=== PATIENT | male | born 1975 | race Caucasian/White ===

== ENCOUNTER 2024-03-15 18:26 | Emergency (ER) | payer BC, SELFPAY ==
[2024-03-15 18:49] VITALS: BP 221/131; PULSE 89; RESP 18; TEMP 36.8; O2SAT 97; BMI 27.9
--- NOTE | 2024-03-15 19:06 | ED.GENADULT ---
HPI - General Adult General Date Seen: 03/15/24 Chief complaint: Skin/Abscess/Foreign Body Stated complaint: Rash across body Time Seen by Provider: 03/15/24 19:05 History of Present Illness HPI narrative: 48-year-old male with a history of hypertension (previously on lisinopril and hydrochlorothiazide according to his records from [facility]. Patient says that his blood pressure came down his doctors took him off his meds. He has not had a checkup since 2017 but as far as he knows he does not have any more trouble with high blood pressure.), history of lipoma on his right back (excised 2016). A he presents to the ER today with a rash. It started about a week ago on his right> forearms and antecubital fossae. It initially started as red bumps and blisters than scabs and scales and then gradually has been healing. Since then he has developed red raised rash areas on other parts of his body including scattered lesions across his chest and abdomen in particular below his nipples and upper abdomen and also in his lower abdomen. He has a few small spots on his lower back but no spots on his mid back between the shoulder blades, but has significant more involvement but much more on the front of his torso. He had 1 small rash on his left jewish that is now improving and now has a small red area on his right upper eyelid. No trouble with his vision. He has also noted redness in his left groin, his buttocks, and a little bit on his left anterior thigh. The rash is mildly itchy and most notably gets itchy when he touches it. No other symptoms. No rash in his mouth. No throat swelling. No trouble breathing. No nausea or vomiting. No fever. No trouble with urination. Bowel movements normal. Patient has no new foods, soaps, or any exposure to allergens. He is not currently on any medications. He has not really been hiking around in the [place] lately but his father notes that there is some tall grass next to his shop that he could have been exposed to. No one else in his home has any rashes to suggest this might be bedbugs or scabies. No other known exposure. He is not exposed to any chemicals. He is noted to have high blood pressure at about 230/130. He says he was unaware of this. No headache. No blurry vision. No chest pain. No trouble breathing. No swelling in his legs. He has a history of hypertension, years ago, and had previously been on lisinopril/hydrochlorothiazide but he says his doctors took him off it years ago because blood pressure was under control. He has not had a checkup now in about 6 or 7 years. His father has a history of hypertension and history of coronary artery disease. Related Data Previous Rx's ?Medication ?Instructions ?Recorded lisinopril 20 mg tablet 20 mg PO DAILY #14 tabs 03/15/24 prednisone 10 mg tablets in a dose See Rx Instructions PO .COMPLEX 03/15/24 pack #64 ea Allergies Allergy/AdvReac Type Severity Reaction Status Date / Time No Known Drug Allergies Allergy Verified 03/15/24 18:55 PFSH PFS Social History Smoking Status: Unknown if ever smoked Second hand tobacco smoke exposure: No How often do you have a drink containing alcohol: never AUDIT-C Alcohol total score: 0 Non-prescribed substance use: denies use Exam Narrative: Exam Narrative: Constitutional: Appears well-developed and well-nourished. Alert. Conversant. Non toxic. HENT: Head: Atraumatic. Nose: Nose normal. Mouth/Throat: Oral mucosa is clear and moist. no trismus. Pharynx normal. Tonsils symmetric. No tonsillar enlargement, erythema, or exudate. Eyes: He has 1 small erythematous lesion on the midportion of his right upper eyelid. Bulbar and lid Conjunctivae normal. EOM normal. Pupils equal, round, and reactive to light. No scleral icterus. No purulent drainage. Neck: Normal range of motion. Neck supple. No tracheal deviation present. No JVD Cardiovascular: Normal rate, regular rhythm. No gallop. No friction rub. No murmur heard. Symmetric radial artery pulses Pulmonary/Chest: Effort normal. No stridor. No respiratory distress. No wheezes. No rales. No rhonchi . No tenderness. Abdominal: Soft. Bowel sounds normal. No distension. No mass. No tenderness. No rebound. No guarding. Musculoskeletal: RUE: Normal range of motion. No tenderness. No deformity LUE: Normal range of motion. No tenderness. No deformity RLE: Normal range of motion. No edema. No tenderness. No deformity LLE: Normal range of motion. No edema. No tenderness. No deformity Lymph: No cervical adenopathy. Neurological: Alert and oriented to person, place, and time. Normal strength. CN II-VII intact. No sensory deficit. GCS eye subscore is 4. GCS verbal subscore is 5. GCS motor subscore is 6. Normal coordination Skin: Skin is pink, dry, no pallor diaphoresis. No pallor. Normal capillary refill. There is a fairly widespread rash. It involves both of his upper extremities especially on the volar forearms and antecubital fossae. He also has a few scattered areas on the front of his upper arms and shoulders. LEs lesions on the dorsum of his arms and non on the back. No lesions between his shoulder blades or on his upper back. He has a few lesions on his lower back and buttocks. He has a fairly large area of erythema affecting his left groin and left anterior medial thigh. He also has a few linear areas on the left distal anterior thigh. There are confluent areas of slightly raised erythematous skin. Some of these have small vesicles and many is have score sting that suggest vesicles have been de roofed. For instance, on his right antecubital fossa there is a roughly 8 x 14 cm irregularly-shaped confluent area. Around this there are some smaller red lesions that almost appear to be streaky has if the patient had been rubbed by something or scratched poison quintin to spread it. He does not have any dermatographiaphism on my exam. In other areas there is very small rashes that appear to be curvilinear shapes as if he had been touched by a branch or perhaps rubs something from his hands onto his skin. These would appear on his right lateral and upper shoulder and on his left anterior thigh and also in some of the areas on his low back. With the scaling and crusting, rashes really are not consistent with urticaria and hives. No pustules. No petechiae or purpura. Normal cap refill. Red rashes are blanchable. Psychiatric: Normal mood. Normal affect. Const: Vital Signs, click to edit/add: Vital Signs - 24 hr 03/15/24 18:49 03/15/24 20:09 Temperature 98.3 F Pulse Rate [Right Pulse Oximeter] 89 Respiratory Rate 18 18 Blood Pressure [Le ft Upper Arm] 221/131 H 236/131 H Pulse Oximetry 97 97 Oxygen Delivery Me thod Room Air Room Air Course Vital Signs Vital signs: Initial Vital Signs Temperature 98.3 F 03/15/24 18:49 Temperature Source Temporal Artery Scan 03/15/24 18:49 Pulse Rate 89 03/15/24 18:49 Pulse Rhythm Regular 03/15/24 18:49 Pulse Strength 3+ Normal 03/15/24 18:49 Respiratory Rate 18 03/15/24 18:49 Blood Pressure 221/131 H 03/15/24 18:49 Blood Pressure Mean 161 H 03/15/24 18:49 Blood Pressure Position Sitting 03/15/24 18:49 Pulse Oximetry 97 03/15/24 18:49 Oxygen Delivery Method Room Air 03/15/24 18:49 Vital Signs Temperature 98.3 F 03/15/24 18:49 Pulse Rate 89 03/15/24 18:49 Respiratory Rate 18 03/15/24 18:49 Blood Pressure 221/131 H 03/15/24 18:49 Pulse Oximetry 97 03/15/24 18:49 Oxygen Delivery Method Room Air 03/15/24 18:49 Temperature 98.3 F 03/15/24 18:49 Pulse Rate 89 03/15/24 18:49 Respiratory Rate 18 03/15/24 20:09 Blood Pressure 236/131 H 03/15/24 20:09 Pulse Oximetry 97 03/15/24 20:09 Oxygen Delivery Method Room Air 03/15/24 20:09 Medications Administered Medications: Discontinued Medications Generic Name Dose Route Start Last Admin Trade Name Freq PRN Reason Stop Dose Admin Lisinopril 20 mg 03/15/24 19:40 03/15/24 20:06 Lisinopril 20 Mg Tablet PO 03/15/24 19:41 20 mg ONCE ONE Administration Prednisone 60 mg 03/15/24 19:39 03/15/24 19:53 Prednisone 20 Mg Tablet PO 03/15/24 19:40 60 mg ONCE ONE Administration Medical Decision Making MDM Narrative Medical decision making narrative: This is a very pleasant 48-year-old gentleman accompanied the ER today by his father and his daughter with concern for AA fairly widespread erythematous rash that has been at times blistery nighttime scabbed and crusty. It has been present for a week it has been slowly spreading. It is itchy when it is touched but otherwise he says he is able to ignore it. Differential is broad. Based on the appearance of the rash especially with some linear areas I suspect this might be a case of poison quintin that is been spread by cutaneous rubbing or possibly poison oak. However the patient has no definite exposure to the outdoors or any recent hiking. He may have been in some tall grass and weeds next to his shop. No new medications or allergen exposures to suggest systemic allergic reaction. Since the rash has been present for a week and there is no signs of any airway involvement or anaphylaxis, doubt a life-threatening allergic reaction here. No known exposure to bedbugs or scabies. Rash seems a bit too widespread for that. Differential might also include autoimmune disease, but given the way that the rash seems to be spreading and linear shaped, would favor something like poison quintin. At this point he is not systemically ill. He does not require admission or transfer hospital for a inpatient dermatology consult. Will start him on prednisone and start on a fairly high dose with a slow taper in case this is poison quintin. Recommend outpatient follow-up with primary care for recheck if not improving or return to the ER if worse. Incidentally he is noted to have markedly high blood pressure. He has a history of this in the past. He is asymptomatic. At this point I do not think this represents a hypertensive emergency. I do not think he had workup here in the ER. However I do think he needs restarted on antihypertensives. Will start him back on lisinopril 20 mg per day. He endorses intention to follow up with primary care within about 1 week for blood pressure recheck and to pursue ongoing blood pressure management. Discussed with the patient and his family the long-term risk of uncontrolled high blood pressure, specifically the risk for kidney damage, atherosclerosis, heart attack, stroke. He endorses attention to restart on the prescribed blood pressure medication and will follow up. Precautions for return to the ER if he does develop headache, blurry vision, focal numbness or weakness, chest pain or trouble breathing, or any other problems. Discharge Plan Discharge Clinical Impression: Rash and nonspecific skin eruption, Hypertension Patient Disposition: Home, Self-Care Condition: Stable Instructions: Acute Rash (ED), Hypertension (ED) Additional Instructions: As we discussed, we do not know the exact cause of your rash at this time. However I suspect it may be something like poison quintin. Were going to treat it with a medication call prednisone that should help the rash calm down. If not completely gone within a week, please recheck with your regular doctor. If you get worse, come back to the ER for recheck. Your blood pressure is high. You need to restart on blood pressure medications and follow-up with your regular doctor within 1 week for another blood pressure recheck. If he develops any chest pain, blurry vision, headache or symptoms of stroke, return to the ER immediately. Please call tomorrow to schedule a primary care checkup. You can the [facility] clinic tomorrow to schedule a recheck for a checkup in blood pressure recheck. If you prefer to follow up with the [facility], you can call [phone] to schedule a follow-up appointment. Prescriptions: New lisinopril 20 mg tablet 20 mg PO DAILY Qty: 14 0RF prednisone 10 mg tablets,dose pack See Rx Instructions .ROUTE .COMPLEX Qty: 64 0RF Rx Instructions: 80mg PO daily for 4 days, then 60mg PO daily for 2 days, then 40mg PO daily for 2 days, then 30 mg PO daily for 2 days, then 20mg PO daily for 2 days, then 10mg PO daily for 2 days, then stop. Stand Alone Forms: [employer] Info Instructions
[2024-03-15] MEDS: predniSONE 20 MG TABLET 60 MG PO (19:53)
[2024-03-15] MEDS: lisinopriL 20 MG TABLET PO (20:06)
[2024-03-15 20:09] VITALS: BP 236/131; RESP 18; O2SAT 97
== END 2024-03-15 20:10 | disposition home or self-care (01) ==
LOC: ED 19:52
PROVIDERS: Emergency Provider Emergency Medicine
DX: R21 Rash and other nonspecific skin eruption (principal); I10 Essential (primary) hypertension
CPT/HCPCS: 99283; A9270; J7512

== ENCOUNTER 2024-03-20 11:01 | Emergency (ER) | payer BC, SELFPAY ==
[2024-03-20 11:05] VITALS: BP 159/96; PULSE 71; RESP 16; TEMP 36.6; O2SAT 95; BMI 28.3
--- NOTE | 2024-03-20 11:50 | ED_ITS ---
HPI - General Adult General Date Seen: 03/20/24 Chief complaint: Diabetic Related Problem Stated complaint: glucose numbers very high Time Seen by Provider: 03/20/24 11:06 Source: patient Mode of arrival: ambulatory Limitations: no limitations History of Present Illness HPI narrative: Patient is a 48-year-old male presenting to emergency department for hyperglycemia. He has no history of diabetes but was recently started on a steroid 5 days ago for a rash on his arms that was concerning for poison quintin. He had follow-up his primary care provider yesterday and had lab work done. Got the results at midnight showing his blood sugar was 559 was told to come to the emergency department by his primary care provider. Patient was feeling well so he waited until this morning. States he has been doing well all morning and even helped his daughter in the garden without any issues. States overall he feels asymptomatic. Is not aware of any previous diabetes diagnosis. Is not currently taking anything for diabetes. States the rash is getting better. No other concerns noted. Denies chest pain, shortness of breath, polyuria, dehydration, headache, vision changes, diarrhea, constipation, abdominal pain. Related Data Previous Rx's ?Medication ?Instructions ?Recorded lisinopril 20 mg tablet 20 mg PO DAILY #14 tabs 03/15/24 prednisone 10 mg tablets in a dose See Rx Instructions PO .COMPLEX 03/15/24 pack #64 ea metformin 500 mg tablet,extended 500 mg PO DAILY #14 tabs 03/20/24 release 24hr (osmotic) Allergies Allergy/AdvReac Type Severity Reaction Status Date / Time No Known Drug Allergies Allergy Verified 03/15/24 18:55 Review of Systems Status of ROS: Reports: 10 or more systems reviewed and unremarkable except as noted in History and below [facility] Social History Smoking Status: Unknown if ever smoked Second hand tobacco smoke exposure: No How often do you have a drink containing alcohol: never AUDIT-C Alcohol total score: 0 Non-prescribed substance use: denies use Exam Narrative: Exam Narrative: Const: Well-nourished, Well-developed, in no distress Eyes: PERRL, no conjunctival injection, and symmetrical lids HENT: Atraumatic external nose and ears. Moist mucous membranes. Neck: Symmetric, trachea midline, No thyromegaly. CVS: RRR, No murmurs or gallops. Peripheral pulses 2+ and equal in all extremities RESP: Unlabored respiratory effort. Clear to auscultation bilaterally. GI: Nontender/Nondistended, No rebound or guarding. MSK:Extremities w/o deformity, Normal Active ROM Skin: Warm, Dry. No rashes or lesions. Neuro: Normal Muscle tone, No focal neurological deficits. Psych: Awake, Alert, & Oriented x3. Appropriate mood and affect. Const: Vital Signs, click to edit/add: Vital Signs - 24 hr 03/20/24 11:05 Temperature 98 F Pulse Rate [Pulse Oximeter] 71 Respiratory Rate 16 Blood Pressure [Ri ght Upper Arm] 159/96 H Pulse Oximetry 95 Oxygen Delivery Me thod Room Air Course Vital Signs Vital signs: Initial Vital Signs Temperature 98 F 03/20/24 11:05 Temperature Source Temporal Artery Scan 03/20/24 11:05 Pulse Rate 71 03/20/24 11:05 Pulse Rhythm Regular 03/20/24 11:05 Respiratory Rate 16 03/20/24 11:05 Blood Pressure 159/96 H 03/20/24 11:05 Blood Pressure Mean 117 H 03/20/24 11:05 Blood Pressure Position Sitting 03/20/24 11:05 Pulse Oximetry 95 03/20/24 11:05 Oxygen Delivery Method Room Air 03/20/24 11:05 Vital Signs Temperature 98 F 03/20/24 11:05 Pulse Rate 71 03/20/24 11:05 Respiratory Rate 16 03/20/24 11:05 Blood Pressure 159/96 H 03/20/24 11:05 Pulse Oximetry 95 03/20/24 11:05 Oxygen Delivery Method Room Air 03/20/24 11:05 Temperature 98 F 03/20/24 11:05 Pulse Rate 71 03/20/24 11:05 Respiratory Rate 16 03/20/24 11:05 Blood Pressure 159/96 H 03/20/24 11:05 Pulse Oximetry 95 03/20/24 11:05 Oxygen Delivery Method Room Air 03/20/24 11:05 Medical Decision Making MDM Narrative Medical decision making narrative: Patient is a 48-year-old male presenting for hyperglycemia. His fasting blood sugar was 410 point of care. He is otherwise completely asymptomatic with normal vital signs and appears well. I do not believe he has DKA or HHS at this time as he appears to be doing too well for either of those diagnoses. I did contact Dr. Evans for his recommendations and he did recommend to start him on metformin XR 500 daily in follow-up this week. I will order a CBC, BMP, HbA1c to better evaluate these labs to also but considering are chemistry machine is down will take several hours for the results come back and I do not believe is necessary to make him wait for the results. I will follow-up on the results when they return. CBC and BMP showed no concerning abnormalities other than a glucose of 445. This was expected and I will informed him I only colon back in 30 concerning findings. I spoke to my calling him back but his hemoglobin A1c results but he says he will follow-up with his primary doctor about it. Lab Data Labs: Lab Results 03/20/24 Range/Units 11:56 WBC 8.57 (4.50-11.00) K/uL RBC 5.64 (4.30-5.90) m/uL Hgb 17.4 (13.5-17.5) gm/dL Hct 50.1 (37.0-53.0) % MCV 89 (80-100) fL MCH 31 (26-34) pg MCHC 35 (32-36) gm/dL RDW Coeff of Rogelio 12.2 (11.5-15.5) % Plt Count 213 (140-440) K/uL Neut % (Auto) 82.2 H (42.0-72.0) % Lymph % (Auto) 12.4 L (20-44) % [place] % (Auto) 4.2 (0.0-11.0) % Eos % (Auto) 0.7 (0.0-7.0) % Baso % (Auto) 0.1 (0.0-3.0) % Neut # (Auto) 7.00 (1.7-7.0) K/uL Lymph # (Auto) 1.10 (0.90-2.90) K/uL [place] # (Auto) 0.40 (0.00-0.90) K/UL Eos # (Auto) 0.06 (0.00-0.50) K/uL Baso # (Auto) 0.01 (0.00-0.30) K/uL Abs Immat Gran (auto) 0.03 (0.00-0.30) K/uL Imm/Tot Granulo (auto) 0.4 % Sodium 136 (135-149) mmol/L Potassium 4.2 (3.6-5.1) mmol/L Chloride 100 (96-114) mmol/L Carbon Dioxide 24 (20-32) mmol/L Anion Gap 12 (7-15) mEq/L BUN 24 (5-24) mg/dL Creatinine 0.8 (0.5-1.5) mg/dL Estimated Creat Clear 115.33 Estimated GFR 108 ml/min Glucose 445 H* (60-115) mg/dL Hemoglobin A1c 13.9 H (0-5.6) % Calcium 9.0 (8.4-10.6) mg/dL Discharge Plan Discharge Clinical Impression: Hyperglycemia Patient Disposition: Home, Self-Care Condition: Stable Instructions: Nondiabetic Hyperglycemia (ED) Additional Instructions: Take medication as prescribed. Return to emergency department for any new or worsening symptoms including increased dehydration, lightheadedness, dizziness, abdominal pain. Dr. Evans wants you to follow-up in his clinic this upcoming week. Prescriptions: New metformin 500 mg tablet extended release 24hr 500 mg PO DAILY Qty: 14 0RF No Action lisinopril 20 mg tablet 20 mg PO DAILY Qty: 14 0RF prednisone 10 mg tablets,dose pack See Rx Instructions .ROUTE .COMPLEX Qty: 64 0RF Rx Instructions: 80mg PO daily for 4 days, then 60mg PO daily for 2 days, then 40mg PO daily for 2 days, then 30 mg PO daily for 2 days, then 20mg PO daily for 2 days, then 10mg PO daily for 2 days, then stop. Follow Up/Referrals: Provider,Not a Local [Primary Care Provider] - Stand Alone Forms: [employer] Info Instructions
[2024-03-20 12:10] LABS: Basophils Absolute Auto 0.01 K/uL (0.00-0.30); Basophils Percent Auto 0.1 % (0.0-3.0); Eosinophils Absolute Auto 0.06 K/uL (0.00-0.50); Eosinophils Percent Auto 0.7 % (0.0-7.0); Hematocrit 50.1 % (37.0-53.0); Hemoglobin* 17.4 gm/dL (13.5-17.5); Immature Granulocytes Abs Auto 0.03 K/uL (0.00-0.30); Immature Granulocytes Pct Auto 0.4 %; Lymphocytes Percent Auto 12.4 % (20-44); Mean Corpuscular HGB Conc 35 gm/dL (32-36); Mean Corpuscular Hemoglobin 31 pg (26-34); Mean Corpuscular Volume 89 fL (80-100); Monocytes Percent Auto 4.2 % (0.0-11.0); Neutrophils Percent Auto 82.2 % (42.0-72.0); Platelet Count* 213 K/uL (140-440); RDW Coefficient of Variation % 12.2 % (11.5-15.5); Red Blood Count 5.64 m/uL (4.30-5.90); White Blood Count* 8.57 K/uL (4.50-11.00)
[2024-03-20 12:14] LABS: Anion Gap 12 mEq/L (7-15); Carbon Dioxide* 24 mmol/L (20-32); Chloride* 100 mmol/L (96-114); Potassium* 4.2 mmol/L (3.6-5.1); Sodium* 136 mmol/L (135-149)
[2024-03-20 12:15] LABS: Glucose* 445 mg/dL (60-115); Slide Review Reflex No
[2024-03-20 13:12] LABS: Blood Urea Nitrogen* 24 mg/dL (5-24); Creatinine* 0.8 mg/dL (0.5-1.5); Est. Creatinine Clearance* 115.33; Estimated Glomerular Filt Rate 108 ml/min
[2024-03-20 13:44] LABS: Hemoglobin A1C* 13.9 % (0-5.6)
== END 2024-03-20 12:05 | disposition home or self-care (01) ==
PROVIDERS: Emergency Provider Student in an Organized Health Care Education/Training Program
DX: E11.00 Type 2 diabetes mellitus with hyperosmolarity without nonketotic hyperglycemic-hyperosmolar coma (NKHHC) (principal)
CPT/HCPCS: 36415; 80048; 82962; 83036; 85025; 99282; 99283

== ENCOUNTER 2024-03-25 11:05 | Inpatient (IN) | payer BC, SELFPAY ==
[2024-03-25] VITALS (10 sets, daily range): BP systolic 130–176; BP diastolic 84–116; PULSE 84–106; RESP 16; TEMP 36.2–36.7; O2SAT 95–98; BMI 26.5; BMI 26.9
[2024-03-25 12:12] LABS: Appearance Urine Clear (Clear); Bilirubin Urine Negative (Negative); Blood Urine Negative (Negative); Color Urine Yellow (Yellow); Glucose Urine 3+ (Negative); Ketones Urine Trace (Negative); Leukocyte Esterase Urine Negative (Negative); Nitrite Urine Negative (Negative); Protein Urine Negative (Negative); Specific Gravity Urine <= 1.005 (1.000-1.030); Urobilinogen Urine 0.2 (0.2-1.0); pH Urine 5.5 (5.0-8.5)
[2024-03-25 12:17] LABS: Lactate* 3.7 mmol/L (0.5-1.9)
[2024-03-25 12:19] LABS: Basophils Percent Auto 0.1 % (0.0-3.0); Eosinophils Percent Auto 0.3 % (0.0-7.0); Hematocrit 52.4 % (37.0-53.0); Hemoglobin* 18.4 gm/dL (13.5-17.5); Immature Granulocytes Pct Auto 0.3 %; Lymphocytes Percent Auto 11.3 % (20-44); Mean Corpuscular HGB Conc 35 gm/dL (32-36); Mean Corpuscular Hemoglobin 31 pg (26-34); Mean Corpuscular Volume 87 fL (80-100); Monocytes Percent Auto 6.8 % (0.0-11.0); Neutrophils Percent Auto 81.2 % (42.0-72.0); Platelet Count* 246 K/uL (140-440); RDW Coefficient of Variation % 12.1 % (11.5-15.5); White Blood Count* 11.88 K/uL (4.50-11.00)
[2024-03-25 12:27] LABS: Slide Review Reflex No
[2024-03-25] MEDS: 0.9 % SODIUM CHLORIDE 1000 ml 1,000 ML IV ×2 (12:27→14:34)
[2024-03-25] MEDS: INSULIN REGULAR, HUMAN 100 UNIT/ML VIAL 10 UNIT IVP (12:27)
[2024-03-25 12:28] LABS: RBC Urine 0-2 (0-2); Squamous Epithelial Cell Urine Few (None-Few); WBC Urine 0-2 (0-5)
[2024-03-25 12:35] LABS: Albumin* 4.7 g/dL (3.3-5.0)
[2024-03-25 12:36] LABS: Chloride* 87 mmol/L (96-114); Potassium* 4.8 mmol/L (3.6-5.1); Sodium* 126 mmol/L (135-149)
[2024-03-25 12:38] LABS: Alkaline Phosphatase* 201 U/L (40-150); Aspartate Amino Transferase* 20 U/L (12-35); Bilirubin Direct* 0.4 mg/dL (0.0-0.5); Bilirubin Total* 1.4 mg/dL (0.1-1.5); Magnesium* 2.1 mg/dL (1.5-2.6); Total Protein* 7.3 g/dL (6.0-8.3)
[2024-03-25 12:39] LABS: Alanine Aminotransferase* 24 U/L (4-50); Anion Gap 16 mEq/L (7-15); Blood Urea Nitrogen* 49 mg/dL (5-24); Carbon Dioxide* 23 mmol/L (20-32); Creatinine* 1.1 mg/dL (0.5-1.5); Est. Creatinine Clearance* 83.88; Estimated Glomerular Filt Rate 82 ml/min
[2024-03-25 12:40] LABS: Calcium* 10.3 mg/dL (8.4-10.6)
--- OUTSIDE RECORDS SUMMARY | 2024-03-25 12:42 | XMS_ITS | Clinical Summary ---
Author Organization [facility] Address [place], [place] [address] Care Team Providers Care Experience Planning Strategist Name Role Phone None Primary Care Provider Unavailabl e Allergies No known active allergies Medications Medication Sig Dispensed Refills Start Date End Date Status predniSONE (DELTASONE) 10 mg tablet Take 10 mg by mouth once daily with a meal. 03/16/2024 Active hydroCHLOROthiaz elian 12.5 mg tabletIndication s:Hypertension Take 1 Tablet (12.5 mg) by mouth once daily. 30 Tablet 1 03/19/2024 Active lisinopriL (PRINIVIL; ZESTRIL) 20 mg tabletIndication s:Hypertension Take 1 Tablet (20 mg) by mouth once daily. 30 Tablet 03/19/2024 Active blood-glucose meterIndications :Type 2 diabetes mellitus with hyperglycemia, without long-term current use of insulin (HC) Dispense meter covered by pts insurance. 1 Each 03/24/2024 Active lancetsIndicatio ns:Type 2 diabetes mellitus with hyperglycemia, without long-term current use of insulin (HC) Dispense item covered by pt ins. E11.65 NIDDM type II, uncontrolled - Test 4 times/day. Reason: New diabetes 100 Each 03/24/2024 Active blood sugar diagnostic stripIndications :Type 2 diabetes mellitus with hyperglycemia, without long-term current use of insulin (HC) Dispense item covered by pt ins. E11.65 NIDDM type II, uncontrolled - Test 4 times/day. Reason: New diabetes 100 Each 03/24/2024 Active metFORMIN (GLUCOPHAGE XR) 500 mg Extended-Release tabletIndication s:Type 2 diabetes mellitus with hyperglycemia, without long-term current use of insulin (HC) Take 1 tablet by mouth twice daily with meals for 7 days. Then increase to 1 tablet in the morning and 2 tablets in the evening for 7 days. Then increase to 2 tablets in the morning and 2 tablets in the evening. 120 Tablet 2 03/24/2024 Active aspirin (ECOTRIN) 81 mg enteric coated tabletIndication s:Type 2 diabetes mellitus with hyperglycemia, without long-term current use of insulin (HC) Take 1 Tablet (81 mg) by mouth once daily with a meal. 90 Tablet 3 03/24/2024 Active lisinopril-hydro chlorothiazide (10-12.5 mg) tablet (PRINZIDE; ZESTORETIC)Indic ations:HTN (hypertension) Take 1 tablet by mouth once daily. 90 tablet 3 07/25/2016 4 Discontinue d(*Med complete/Re gimen complete/[place] of care change) lisinopriL (PRINIVIL; ZESTRIL) 20 mg tablet Take 20 mg by mouth once daily. 03/16/2024 4 Discontinue d(Reorder (E-cancel not sent)) metFORMIN controlled release (FORTAMET) 500 mg tablet Take 500 mg by mouth once daily with a meal. 03/20/2024 4 Discontinue d(*Medicati on adjustment) Active Problems Problem Noted Date Diagnosed Date Type 2 diabetes mellitus wit h hyperglycemia, without long-term current use of insulin 03/24/2024 Chest wall mass 06/27/2016 Hypertension 11/12/2011 Encounters Date Type Department Care Team Description 03/24/2024 1:35 PM CDT Office Visit [facility] [address] [place] [address] Gillian Goins PA Follow Up (ER F/U Hyperglycemia /Feeling tired and weak ) 03/24/2024 Travel 03/20/2024 Orders Only [facility] Scanner 1 scan: (1-Ord) [facility], MULTIPLE LAB RESULTS, 03/20/2024 03/20/2024 Telephone [facility] [address] [place] [address] Kade Evans MD Follow Up 03/20/2024 Orders Only [facility] [address] [place] [address] Kade Evans MD <No scans attached> 03/19/2024 3:40 PM CDT Office Visit [facility] [address] [facility] [address] Gillian Goins PA Blood Pressure (high bp in ER ) 03/19/2024 Telephone [facility] [address] [place] [address] Kade Evans MD Results 03/19/2024 Travel 03/17/2024 Telephone [facility] [address] [facility] [address] Gillian Goins PA Blood Pressure (Appt for 221/131) from Last 3 Months Immunizations Name Administration Dates Next Due Influenza, IIV4 06/18/2018 Tdap 02/02/2018,07/25/2016 Family History Medical History Relation Name Comments Coronary artery disease Father Hypertension Father Anesthesia Problem Other Stomach cancer Paternal Grandfather Relation Name Status Comments Father Other Paternal Grandfather Social History Tobacco Use Types Packs/Day Years Used Date Smoking Tobacco: Former Cigarettes Q uit: 09/15/1997 Smokeless Tobacco: Never Tobacco Cessation:Counseling Given: Yes Alcohol Use Standard Drinks/Week Comments No 0 (1 standard drink = 0.6 oz pur e alcohol) Social Connections Answer Date Recorded Frequency of Communication with Friends and Fami ly 0 03/19/2024 Financial Resource Strain Answer Date R ecorded Difficulty of Paying Living Expenses 3 03/19/2024 Difficulty of Paying Living Expenses Not on file 03/19/2024 Food Insecurity Answer Date Recorded Worried About Running Out of Food in the Last Ye ar 1 03/19/2024 Transportation Needs Answer Date Record ed Lack of Transportation (Medical) 1 03/19/2024 Housing Stability Answer Date Recorded Unable to Pay for Housing in the Last Year 1 03/19/2024 Sex and Gender Information Value Date Recorded Sex Assigned at Not on file Gender Identity Not on file Sexual Orientation Not on file Obstetrics History Last Filed Vital Signs Vital Sign Reading Time Taken Comments Blood Pressure 130/86 03/24/2024 1:34 PM CDT Pulse 94 03/24/2024 1:34 PM CDT Temperature 36.8 ??C (98.3 ??F) 08/07/2016 9:47 AM CS T Respiratory Rate - - Oxygen Saturation 96% 03/24/2024 1:34 PM CDT Inhaled Oxygen Concentration - - Weight 89 kg (196 lb 3.2 oz) 03/24/2024 1:34 PM CDT Height 171.7 cm (5' 7.6) 08/07/2016 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 Body Mass Index 30.19 08/07/2016 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 Plan of Treatment Upcoming Encounters Date Type Department Care Team (Late st Contact Info) Description 04/02/2024 8:20 AM CDT Office Visit [facility] [address] [facility] [place] [address] [place] [address] [place] [address] 04/02/2024 11:20 AM CDT Nurse/Clinic Staff Only [facility] [address] [place] [address] 04/02/2024 12:45 PM CDT Orders Only [facility] [address] [place] [address] Lab, Nf 04/07/2024 9:00 AM CDT Patient Outreach [facility] [address] [place] [address] Sarah Mcbride, RD [address] [place] [address] 06/15/2024 9:00 AM CDT Orders Only [facility] [address] [place] [address] Lab, [place] 06/18/2024 9:30 AM CDT Office Visit [facility] [address] [place] [address] Gillian Goins PA [address] [place] [address] Health Maintenance Due Date Last Done Comments Pneumococcal series for age 6-64 (1 of 2 - PCV) 1980 HIV for age 15-65 1989 Hepatitis C screening for ag e 18-79 1992 Depression screening for age 12+ 06/27/2017 06/27/20 16 BMI (ht and wt on same day) for age 18+ 08/07/2017 08/07/2016, 07/25/2016, 07/03/2016, Additional history exists Colonoscopy through age 75 2019 Lipids for age 45-75 07/11/2021 07/11/2016 COVID-19 vaccine series ( season) 2023 Influenza for age 9-49 05/16/2024 06/18/2018 Tetanus booster 02/03/2028 02/02/2018, 07/25/2016 Tdap Completed 02/02/2018, 07/25/2016 Procedures Procedure Name Priority Date/Time Associated Diagnosis Comments SCAN-LABORATORY REPORT 03/20/2024 12:00 AM CDT BASIC METABOLIC PANEL Routine 03/19/2024 4:13 PM CDT Hypertension LIPID PANEL W REFLEX MEASURED LDL Routine 07/11/2016 7:58 AM CDT Lipid screening from Last 3 Months or Most Recently Relevant to Health Maintenance Results * SCAN-LABORATORY REPORT (03/20/2024 12:00 AM CDT) Scanner OTHER * (ABNORMAL) BASIC METABOLIC PANEL (03/19/2024 4:13 PM CDT) SODIUM 133(L) 136 - 145 mmol/L 03/19/2024 11:56 PM CDT [facility] POTASSIUM 4.9 3.5 - 5.1 mmol/L 03/19/2024 11:56 PM CDT [facility] CHLORIDE 94(L) 98 - 107 mmol/L 03/19/2024 11:56 PM CDT [facility] CO2,TOTAL 24 22 - 29 mmol/L 03/19/2024 11:56 PM CDT [facility] ANION GAP 15 5 - 18 03/19/2024 11:56 PM T [facility] GLUCOSE 559(HH) 70 - 99 mg/dL 03/19/2024 11:56 PM CDT [facility] CALCIUM 9.8 8.6 - 10.0 mg/dL 03/19/2024 11:56 PM T [facility] BUN 28(H) 6 - 20 mg/dL 03/19/2024 11:56 PM T [facility] CREATININE 1.14 0.70 - 1.20 mg/dL 03/19/2024 11:56 PM T [facility] BUN/CREAT RATIO 25(H) 10 - 20 11:56 PM T [facility] eGFR 79(L) >90 mL/min/1.7 3m2 03/19/2024 11:56 PM T [facility] Comment:As of 2021, eG FR is calculated by the CKD-EPI creatinine equation without race adjustment. ??eGFR can be influenced by muscle mass, exercise, and diet. ??The reported eGFR is an estimation only and is only applicable if the renal function is stable. Blood BLOOD SPECIMEN / Unknown Venipuncture / Unknown 03/19/2024 4:13 PM CDT 03/19/2024 4:15 PM CDT Gillian [facility]URST [facility] [address] [place] [address], * (ABNORMAL) LIPID PANEL W REFLEX MEASURED LDL (07/11/2016 7:58 AM CDT) CHOLESTEROL,TOTAL 201(H) 100 - 199 mg/dL 07/11/2016 10:03 AM CDT [facility] TRIGLYCERIDES 162(H) <150 mg/dL 07/11/2016 10:03 AM T [facility] HDL CHOLESTEROL 35(L) >40 mg/dL 6 10:03 AM CDT [facility] NON-HDL CHOLESTEROL 166(H) <145 mg/dl 07/11/2016 10:03 AM CDT [facility] CHOL/HDL RATIO 5.74(H) <4.50 07/11/2016 10:03 AM CDT [facility] LDL CHOLESTEROL 134(H) <=130 mg/dL 07/11/2016 10:03 AM CDT [facility] PATIENT STATUS FASTING 07/11/2016 10:03 AM CDT [facility] Blood BLOOD SPECIMEN / Unknown Venipuncture / Unknown 07/11/2016 7:58 AM CDT 07/11/2016 7:59 AM CDT Kade Evans MD CHEMISTRY [facility] [address] [place] [address], from Last 3 Months or Most Recently Relevant to Health Maintenance Care Teams Experience Planning Strategist Relationship Specialty Start Date End Date None . PCP - General 03/19/24
[2024-03-25 12:52] LABS: Glucose* 859 mg/dL (60-115)
--- NOTE | 2024-03-25 13:08 | ED_ITS ---
HPI - General Adult General Chief complaint: Weakness Stated complaint: Dizzy, weak, tired Time Seen by Provider: 03/25/24 11:59 Source: patient Mode of arrival: ambulatory Limitations: no limitations History of Present Illness HPI narrative: 48-year-old male presenting today with weakness. Patient states that he has felt dizzy all week long. He denies any fevers or chills. He is mildly nauseated but has not vomited. He has tried to stay well hydrated during this week and has been drinking lots of water. He states that he feels very tired and has been sitting at home and closing his eyes, not necessarily falling asleep certainly significantly decreased energy than normal. Patient was diagnosed with diabetes this past week, was started on metformin on Friday. Ever since then he has been feeling bad. He today he fell down at work when his legs gave out, did not hit his head or lose consciousness. Has lost 15 lb in the last 4 days despite eating. Does have increased urinary output and thirst. Related Data Home Medications ?Medication ?Instructions ?Recorded ?Confirmed hydrochlorothiazide 12.5 mg tablet 12.5 mg PO DAILY 03/25/24 03/25/24 Previous Rx's ?Medication ?Instructions ?Recorded lisinopril 20 mg tablet 20 mg PO DAILY #14 tabs 03/15/24 prednisone 10 mg tablets in a dose See Rx Instructions PO .COMPLEX 03/15/24 pack #64 ea metformin 500 mg tablet,extended 500 mg PO DAILY #14 tabs 03/20/24 release 24hr (osmotic) Allergies Allergy/AdvReac Type Severity Reaction Status Date / Time No Known Drug Allergies Allergy Verified 03/25/24 11:50 Review of Systems Status of ROS: Reports: 10 or more systems reviewed and unremarkable except as noted in History and below [facility] Social History Smoking Status: Unknown if ever smoked Second hand tobacco smoke exposure: No How often do you have a drink containing alcohol: never AUDIT-C Alcohol total score: 0 Non-prescribed substance use: denies use Exam Narrative: Exam Narrative: Well-nourished well-developed patient in no acute distress. Alert and oriented. Answers questions appropriately. Mood and affect are appropriate. Thoughts are goal oriented and rational. No tangential or magical thinking noted. Patient speaks in full sentences without needing to catch his breath. HEENT: Normocephalic atraumatic. Pupils are equally round reactive to light. Extraocular muscles are intact. Conjunctivae are moist without any icterus noted. Moist mucous membranes. Posterior pharynx is normal. Neck is soft without any lymphadenopathy or thyromegaly. No masses are appreciated. Cardiovascular: Slightly tachycardic. Lungs: Clear to auscultation bilaterally no wheezes rhonchi or rales are appreciated. Patient takes deep breaths without any discomfort. Abdomen: Soft and nontender nondistended with normal bowel sounds. Extremities: Bilateral lower extremities are without edema. Normal DP and PT pulses. Skin: Well perfused without any obvious rashes. Const: Vital Signs, click to edit/add: Vital Signs - 24 hr 03/25/24 11:44 Temperature 97.1 F L Pulse Rate [Pulse Oximeter] 101 H Respiratory Rate 16 Blood Pressure [Ri ght Upper Arm] 130/90 H Pulse Oximetry 96 Oxygen Delivery Me thod Room Air Course Course ED Course: Bedside glucose is greater than 600. EKG, read by me, shows normal sinus rhythm, pulse 100. IV is established and patient received a L of normal saline and 10 units of regular insulin. A CBC shows slightly elevated white count, slightly elevated RBC and elevated hemoglobin 18.4. Chemistry shows sodium of 126, chloride is 87. Anion gap is 16. BUN is 49 creatinine is 1.1. Glucose is 859. Lactate is elevated at 3.7. LFTs are unremarkable. Venous blood gas shows a pH of 7.432, CO2 is 41, HC03 is 27. 3+ glucose and trace ketones in his urine. Insulin drip started. Discussed patient with admitting provider who graciously accepts the patient for admission. Vital Signs Vital signs: Initial Vital Signs Temperature 97.1 F L 03/25/24 11:44 Temperature Source Temporal Artery Scan 03/25/24 11:44 Pulse Rate 101 H 03/25/24 11:44 Respiratory Rate 16 03/25/24 11:44 Blood Pressure 130/90 H 03/25/24 11:44 Blood Pressure Mean 103 03/25/24 11:44 Blood Pressure Position Sitting 03/25/24 11:44 Pulse Oximetry 96 03/25/24 11:44 Oxygen Delivery Method Room Air 03/25/24 11:44 Vital Signs Temperature 97.1 F L 03/25/24 11:44 Pulse Rate 101 H 03/25/24 11:44 Respiratory Rate 16 03/25/24 11:44 Blood Pressure 130/90 H 03/25/24 11:44 Pulse Oximetry 96 03/25/24 11:44 Oxygen Delivery Method Room Air 03/25/24 11:44 Temperature 97.1 F L 03/25/24 11:44 Pulse Rate 101 H 03/25/24 11:44 Respiratory Rate 16 03/25/24 11:44 Blood Pressure 130/90 H 03/25/24 11:44 Pulse Oximetry 96 03/25/24 11:44 Oxygen Delivery Method Room Air 03/25/24 11:44 Medications Administered Medications: Discontinued Medications Generic Name Dose Route Start Last Admin Trade Name Robertoq PRN Reason Stop Dose Admin Sodium Chloride 1,000 mls @ 1,000 mls/hr 03/25/24 12:00 03/25/24 12:27 0.9 % Sodium Chloride 1000 Ml IV 03/25/24 12:59 1,000 mls/hr .Q1H OBI Administration Insulin Human Regular 10 unit 03/25/24 11:59 03/25/24 12:27 Insulin Regular, Human 100 Unit/Ml Vial IVP 03/25/24 12:00 10 unit ONCE ONE Administration Medical Decision Making MDM Narrative Medical decision making narrative: 48-year-old male with what appears to be on the verge of a hyperosmolar hyperglycemic episode. Calculated osmolality is 299. Patient does not have a significant anion gap, or abdominal pain but does have weight loss and symptoms over several days which would be more consistent with a hyperosmolar hyperglycemic episode versus DKA. Patient will be admitted for further management. Lab Data Lab results reviewed: Yes I reviewed the patient's lab results Labs: Lab Results 03/25/24 03/25/24 03/25/24 Range/Units 12:00 12:08 12:16 WBC 11.88 H (4.50-11.00) K/uL RBC 6.00 H (4.30-5.90) m/uL Hgb 18.4 H (13.5-17.5) gm/dL Hct 52.4 (37.0-53.0) % MCV 87 (80-100) fL MCH 31 (26-34) pg MCHC 35 (32-36) gm/dL RDW Coeff of Rogelio 12.1 (11.5-15.5) % Plt Count 246 (140-440) K/uL Neut % (Auto) 81.2 H (42.0-72.0) % Lymph % (Auto) 11.3 L (20-44) % [place] % (Auto) 6.8 (0.0-11.0) % Eos % (Auto) 0.3 (0.0-7.0) % Baso % (Auto) 0.1 (0.0-3.0) % Neut # (Auto) 9.60 H (1.7-7.0) K/uL Lymph # (Auto) 1.30 (0.90-2.90) K/uL [place] # (Auto) 0.80 (0.00-0.90) K/UL Eos # (Auto) 0.00 (0.00-0.50) K/uL Baso # (Auto) 0.00 (0.00-0.30) K/uL Abs Immat Gran (auto) 0.00 (0.00-0.30) K/uL Imm/Tot Granulo (auto) 0.3 % VBG pH 7.432 H (7.32-7.43) VBG pCO2 41 (40-50) mmHG VBG pO2 49.4 H (25-47) mmHG VBG HCO3 27 (21-28) mmol/L Sodium 126 L (135-149) mmol/L Potassium 4.8 (3.6-5.1) mmol/L Chloride 87 L (96-114) mmol/L Carbon Dioxide 23 (20-32) mmol/L Anion Gap 16 H (7-15) mEq/L BUN 49 H (5-24) mg/dL Creatinine 1.1 (0.5-1.5) mg/dL Estimated Creat Clear 83.88 Estimated GFR 82 ml/min Glucose 859 H* (60-115) mg/dL Lactate 3.7 H (0.5-1.9) mmol/L Calcium 10.3 (8.4-10.6) mg/dL Magnesium 2.1 (1.5-2.6) mg/dL Total Bilirubin 1.4 (0.1-1.5) mg/dL Direct Bilirubin 0.4 (0.0-0.5) mg/dL AST 20 (12-35) U/L ALT 24 (4-50) U/L Alkaline Phosphatase 201 H (40-150) U/L Total Protein 7.3 (6.0-8.3) g/dL Albumin 4.7 (3.3-5.0) g/dL Urine Color Yellow (Yellow) Urine Appearance Clear (Clear) Urine pH 5.5 (5.0-8.5) Ur Specific [place] <= 1.005 (1.000-1.030) Urine Protein Negative (Negative) Urine Glucose (UA) 3+ A (Negative) Urine Ketones Trace A (Negative) Urine Blood Negative (Negative) Urine Nitrite Negative (Negative) Urine Bilirubin Negative (Negative) Urine Urobilinogen 0.2 (0.2-1.0) Ur Leukocyte Esterase Negative (Negative) Urine RBC 0-2 (0-2) Urine WBC 0-2 (0-5) Ur Squamous Epith Cells Few (None-Few) Urine Bacteria None (None) SARS-CoV-2 (PCR) Negative SARS-CoV-2 (Negative) Influenza Type A (PCR) Negative PCR FLU A (Negative) Influenza Type B (PCR) Negative PCR FLU B (Negative) ECG Data Attestation: I personally reviewed and interpreted this ECG as follows: Discharge Plan Discharge Clinical Impression: Hyperosmolar hyperglycemic state (HHS) Patient Disposition: Admitted As Observation Condition: Stable Prescriptions: No Action lisinopril 20 mg tablet 20 mg PO DAILY Qty: 14 0RF prednisone 10 mg tablets,dose pack See Rx Instructions .ROUTE .COMPLEX Qty: 64 0RF Rx Instructions: 80mg PO daily for 4 days, then 60mg PO daily for 2 days, then 40mg PO daily for 2 days, then 30 mg PO daily for 2 days, then 20mg PO daily for 2 days, then 10mg PO daily for 2 days, then stop. metformin 500 mg tablet extended release 24hr 500 mg PO DAILY Qty: 14 0RF hydrochlorothiazide 12.5 mg tablet 12.5 mg PO DAILY Follow Up/Referrals: Kade Evans MD [Primary Care Provider] -
[2024-03-25 13:11] LABS: PCO2 VBG 41 mmHG (40-50); pH VBG 7.432 (7.32-7.43)
[2024-03-25 13:12] LABS: HCO3 VBG 27 mmol/L (21-28); PO2 VBG 49.4 mmHG (25-47)
[2024-03-25 13:14] LABS: PCR FLU A Negative PCR FLU A (Negative); PCR FLU B Negative PCR FLU B (Negative); SARS PCR* Negative SARS-CoV-2 (Negative)
[2024-03-25] MEDS: INSULIN INF 100 UNIT/100 ML 100 UNIT/100 ML BAG 6.5 UNIT IVPB (13:22)
--- NOTE | 2024-03-25 14:02 | P.IMHP_ITS ---
Hospitalist- H&P: HPI History of Present Illness Date Seen: 03/25/24 Chief complaint: Dizzy, weak, tired Narrative: Joe Pulido is a 48 year old male admitted through the emergency department with weakness and hyperglycemia. Patient has no previous history of diabetes mellitus. About 8 years ago he did have an isolated elevated blood sugar 147 on a fasting lab with a subsequent hemoglobin A1c of 5.7. Since that time he has not had any further testing for diabetes until last week. On March 15 He was seen in our emergency department with a rash on his right arm. Was diagnosed with poison quintin and started on prednisone with a taper over 12 days. His last dose is due tomorrow. He was also restarted on his blood pressure medications. On March 20 he return to the emergency department with hyperglycemia. Blood sugar was 559. Hemoglobin A1c was 13.9. He had noted that he had marked weight loss, polyuria, polydipsia. No other marked electrolyte abnormalities were seen. He was started on metformin 500 mg daily. He was seen in clinic on March 24. His medications, lisinopril, hydrochlorothiazide were continued, metformin was increased to 1000 mg daily and aspirin 81 mg was added. For the last 5 days he has been progressively getting weaker. He has continued to have severe polyuria and polydipsia and weight loss. He has not been eating much but he has been able to drink a lot of fluids.. Review of Systems Narrative: Patient reports other than his constitutional symptoms of thirst, weakness, fatigue, malaise he has no other symptoms. He specifically denies cold, cough, sore throat, chest pain, shortness of breath, abdominal pain, nausea, vomiting, diarrhea, blood in his stool, urinary problems other than polyuria, skin rash. [facility] Medical History (Updated 03/25/24 @ 21:45 by Reed Mendoza MD) Type 2 diabetes mellitus ?E11.9 - Type 2 diabetes mellitus without complications (ICD-10) Hypertension ?I10 - Essential (primary) hypertension (ICD-10) Family History (Updated 03/25/24 @ 21:40 by Reed Mendoza MD) Father Diabetes Cardiovascular disease Coronary artery disease Brother Diabetes Other High blood pressure Social History (Updated 03/25/24 @ 21:41 by Reed Mendoza MD) Narrative: He lives in [place] with his parents and 5-year-old daughter. He works at [employer]. Code status is full. Healthcare power of civil rights attorney is his father. Father is present with him today. He does not smoke. He does not drink alcohol. He does not use recreational drugs. What is your current living situation?: I presently have a place to live Problems where you live: no known problems Problems where you live details: N/A In the past 12 months, utilities in danger of being shut off: no In past 12 months, lack of transportation kept you from medical appts, meetings, work, or getting things needed for daily living: no In the past 12 mos, have been you worried that your food would run out before you had money to buy more?: never true In the past 12 mos, the food you bought just didn't last and you didn't have money to buy more?: never true Smoking Status: Former smoker Second hand tobacco smoke exposure: No How often do you have a drink containing alcohol: never AUDIT-C Alcohol total score: 0 Non-prescribed substance use: denies use How often does anyone, including family, friends and others, physically hurt you : never How often does anyone, including family, friends and others, insult or talk down to you: never How often does anyone, including family, friends and others, threaten you with harm: never How often does anyone, including family, friends and others, scream or curse at you: never Meds Home Medications and Allergies Home Medications ?Medication ?Instructions ?Recorded ?Confirmed ?Type hydrochlorothiazide 12.5 mg tablet 12.5 mg PO DAILY 03/25/24 03/25/24 History Allergies Allergy/AdvReac Type Severity Reaction Status Date / Time No Known Drug Allergies Allergy Verified 03/25/24 11:50 Exam Narrative: Exam Narrative: He is alert and appears in no distress. Mental status appears normal. He gives good details of his history. No obvious mental slowing or confusion. Eyes normal. Sclerae nonicteric. Oropharynx is normal. Neck is supple without mass or adenopathy. Respirations are clear to auscultation. Cardiovascular: S1, S2, regular rate and rhythm. No murmur gallop or rub. Abdomen: Bowel sounds active. Abdomen is soft without tenderness or mass. External genitalia normal. Extremities normal. Without edema. Good peripheral pulses. Const: Vital Signs, click to edit/add: Vital Signs - 24 hr 03/25/24 11:44 Temperature 97.1 F L Pulse Rate [Pulse Oximeter] 101 H Respiratory Rate 16 Blood Pressure [Ri ght Upper Arm] 130/90 H Pulse Oximetry 96 Oxygen Delivery Me thod Room Air Documenting provider has reviewed patient's vital signs: yes Hospitalist - H&P: Result Labs Labs: Short CBC 03/25/24 Range/Units 12:08 WBC 11.88 H (4.50-11.00) K/uL Hgb 18.4 H (13.5-17.5) gm/dL Hct 52.4 (37.0-53.0) % Plt Count 246 (140-440) K/uL BMP 03/25/24 12:08 Sodium 126 L Potassium 4.8 Chloride 87 L Carbon Dioxide 23 BUN 49 H Creatinine 1.1 Glucose 859 H* Calcium 10.3 Liver Function 03/25/24 Range/Units 12:08 Total Bilirubin 1.4 (0.1-1.5) mg/dL Direct Bilirubin 0.4 (0.0-0.5) mg/dL AST 20 (12-35) U/L ALT 24 (4-50) U/L Alkaline Phosphatase 201 H (40-150) U/L Albumin 4.7 (3.3-5.0) g/dL Urine 03/25/24 Range/Units 12:00 Urine Color Yellow (Yellow) Urine Appearance Clear (Clear) Urine pH 5.5 (5.0-8.5) Ur Specific [place] <= 1.005 (1.000-1.030) Urine Protein Negative (Negative) Urine Glucose (UA) 3+ A (Negative) Assessment and Plan Assessment and plan (1) Hyperosmolar hyperglycemic state (HHS): Problem comment: Patient has new diagnosis of diabetes mellitus. This appears to be type 2 diabetes which is very poorly controlled. Likely progressively worsening over the last 8 years. Acutely worse due to high-dose prednisone therapy from 10 days ago. With a hemoglobin A1c of 13.9 he will need insulin to achieve any reasonable blood sugar control in the short term. Will start him on an insulin drip now and then transition to basal bolus therapy. Will have nurses instructed in insulin administration, blood sugar monitoring and diabetic management. Also aggressive fluid resuscitation to deal with his severe dehydration due to his hyperosmolar hyperglycemic state. Monitor for electrolyte status and renal function as well. Status: Acute (2) Hypertension: Problem comment: Resume lisinopril and hydrochlorothiazide as blood pressure allows. Status: Acute Plan Patient is admitted to critical care unit for fluid resuscitation, IV insulin drip and hourly monitoring of blood sugars, electrolytes and vital signs. Total Time Spent Total Time Spent: Total time spent today is 100 minutes in critical care evaluation and management.
[2024-03-25 14:05] LABS: Glucose, Point-of-Care* > 600 mg/dl (60-115)
[2024-03-25] MEDS: 5 % DEXTROSE/0.45% SOD CHLOR 1,000 ML 250 ML IV (15:42)
[2024-03-25 15:54] LABS: Chloride* 98 mmol/L (96-114)
[2024-03-25 15:55] LABS: Potassium* 3.5 mmol/L (3.6-5.1); Sodium* 134 mmol/L (135-149)
[2024-03-25 15:57] LABS: Est. Creatinine Clearance* 92.26; Estimated Glomerular Filt Rate 92 ml/min
[2024-03-25 15:58] LABS: Anion Gap 8 mEq/L (7-15); Blood Urea Nitrogen* 42 mg/dL (5-24); Calcium* 9.5 mg/dL (8.4-10.6); Carbon Dioxide* 28 mmol/L (20-32); Glucose* 319 mg/dL (60-115)
[2024-03-25 19:08] LABS: Lactate* 3.1 mmol/L (0.5-1.9)
[2024-03-25 19:28] LABS: Chloride* 97 mmol/L (96-114)
[2024-03-25 19:29] LABS: Potassium* 3.3 mmol/L (3.6-5.1); Sodium* 134 mmol/L (135-149)
[2024-03-25 19:31] LABS: Creatinine* 0.9 mg/dL (0.5-1.5); Est. Creatinine Clearance* 102.52; Estimated Glomerular Filt Rate 105 ml/min
[2024-03-25 19:32] LABS: Anion Gap 7 mEq/L (7-15); Blood Urea Nitrogen* 38 mg/dL (5-24); Calcium* 8.8 mg/dL (8.4-10.6); Carbon Dioxide* 30 mmol/L (20-32); Glucose* 244 mg/dL (60-115)
[2024-03-25] MEDS: POTASSIUM BICARB 25 MEQ EFFERVESCENT TAB 50 MEQ PO (20:49)
[2024-03-25] MEDS: SODIUM CHLORIDE 0.9 % (FLUSH) 10 ML SYRINGE 5 ML IVF (20:50)
[2024-03-25] MEDS: INSULIN ASPART 100 UNIT/ML SUBCUT (23:09)
--- NOTE | 2024-03-25 23:21 | PC.NURSE ---
End of Shift: Patient pleasant and cooperative. Afebrile. Denies pain. Up with SBA. Tolerating regular diet with no nausea. Insulin drip running 7 units/hr at start of shift. Decreased to 6 units per hour per protocol. Updated MD. Blood glucose checks every hour and drip to remained at 6 units/hr per MD, see frequent charting. Drip stopped at 2045 per MD order. Blood glucose monitoring changed to every 4 hours along with sliding scale insulin staring at 2300.
[2024-03-26 03:18] VITALS: BP 141/96; PULSE 76; RESP 18; TEMP 36.4; O2SAT 96
[2024-03-26] MEDS: INSULIN ASPART 100 UNIT/ML SUBCUT ×3 (03:28→11:43)
--- NOTE | 2024-03-26 06:57 | PC.NURSE ---
END OF SHIFT NOTE: PT PLEASANT AND COOPERATIVE. A&O. PT DENIES CP, SOB, N/V. AMBULATES WITHIN ROOM INDEPENDENTLY. VSS ON RA; AFEBRILE. TELE READS NSR. UNEVENTFUL NIGHT. CALL LIGHT WITHIN PT?S REACH.?
[2024-03-26 07:05] LABS: Basophils Absolute Auto 0.02 K/uL (0.00-0.30); Basophils Percent Auto 0.2 % (0.0-3.0); Eosinophils Absolute Auto 0.27 K/uL (0.00-0.50); Eosinophils Percent Auto 2.8 % (0.0-7.0); Hematocrit 47.5 % (37.0-53.0); Hemoglobin* 16.3 gm/dL (13.5-17.5); Immature Granulocytes Abs Auto 0.05 K/uL (0.00-0.30); Immature Granulocytes Pct Auto 0.5 %; Lymphocytes Absolute Auto 2.36 K/uL (0.90-2.90); Lymphocytes Percent Auto 24.8 % (20-44); Mean Corpuscular HGB Conc 34 gm/dL (32-36); Mean Corpuscular Hemoglobin 31 pg (26-34); Mean Corpuscular Volume 90 fL (80-100); Monocytes Percent Auto 7.8 % (0.0-11.0); Neutrophils Absolute Auto 6.07 K/uL (1.7-7.0); Neutrophils Percent Auto 63.9 % (42.0-72.0); Platelet Count* 200 K/uL (140-440); RDW Coefficient of Variation % 12.3 % (11.5-15.5); Red Blood Count 5.31 m/uL (4.30-5.90); White Blood Count* 9.51 K/uL (4.50-11.00)
[2024-03-26 07:06] LABS: Slide Review Reflex No
[2024-03-26 07:11] LABS: Chloride* 100 mmol/L (96-114); Potassium* 3.2 mmol/L (3.6-5.1); Sodium* 133 mmol/L (135-149)
[2024-03-26 07:14] LABS: Anion Gap 5 mEq/L (7-15); Blood Urea Nitrogen* 28 mg/dL (5-24); Carbon Dioxide* 28 mmol/L (20-32); Creatinine* 0.7 mg/dL (0.5-1.5); Est. Creatinine Clearance* 131.81; Estimated Glomerular Filt Rate 113 ml/min; Glucose* 185 mg/dL (60-115)
[2024-03-26 07:15] LABS: Calcium* 8.4 mg/dL (8.4-10.6)
[2024-03-26 07:35] VITALS: PULSE 78
[2024-03-26 08:19] VITALS: BP 148/100; PULSE 85; RESP 18; TEMP 36.4; O2SAT 97
[2024-03-26] MEDS: INSULIN ASPART 100 UNIT/ML 10 UNIT SUBCUT ×2 (08:23→11:44)
[2024-03-26] MEDS: POTASSIUM BICARB 25 MEQ EFFERVESCENT TAB PO ×3 (08:37→11:45)
[2024-03-26] MEDS: SODIUM CHLORIDE 0.9 % (FLUSH) 10 ML SYRINGE 5 ML IVF (08:37)
[2024-03-26 10:02] VITALS: BMI 26.9
--- NOTE | 2024-03-26 10:12 | PM.DS1 ---
DS: Providers Provider Date Seen: 03/26/24 Date of admission: 03/25/24 15:18 Primary care physician: Kade Evans MD Admitting Clinician: Iman Pabon MD Consults: 03/26/24 08:14 Consult to Nutrition [CONS] Routine Comment: Reason for consult:: Diabetic Teaching Attending Physician on discharge: Dolores Kaufman MD Date of Discharge: 03/26/24 DS: Diagnosis Discharge Diagnosis (1) Hyperosmolar hyperglycemic state (HHS): Status: Acute Problem details: - new dx of diabetes mellitus; likely poorly controlled type 2, acutely worse due to high-dose prednisone therapy the week prior to presentation - admission A1C 13.9 with pH 7.4 and AG of 16 - improved during stay with insulin and IVF administration, BG down to 100-200s on hospital day 1 - received 20U Glargine BID, 10U regular insulin with meals, + SSI (9 units in 24 hours) - patient met with Nutrition during stay and is motivated for diet changes - we will decrease him home on metformin 500 mg BID (this is an increase from 500 mg once daily), Lantus 20 units BID, and diabetic diet - close follow-up with PCP to review blood sugars and need for mealtime insulin (2) Hypertension: Status: Acute Problem details: - continue home doses of lisinopril and hydrochlorothiazide with mildly elevated pressures, routine follow-up with PCP for this DS: Summary Hospital Course Hospital Course: Joe is a 48-year-old male who was admitted to the hospital with hyper glycemic hyperosmolar coma; presentation blood sugar in the emergency room was in the 800s. He had been treated with high-dose prednisone prior to admission for a poison quintin outbreak. In the emergency room, patient was noted to have an A1c of 13.9, pH of 7.4 and anion gap of 16. He was started on IV fluids and insulin, felt back to baseline on hospital day 1 requesting discharge home. Gap notably closed, blood sugars came down nicely with the administration of insulin. Patient had recently been diagnosed with DM2 by PCP; has access to a log book and glucometer. He met with our Nutrition team and is motivated to follow diet recommendations upon discharge. Status at Discharge Functional status at discharge: independent ambulation Overall status at discharge: patient is back to baseline Time Spent with Patient Time attestation: Total time spent providing and/or coordinating discharge services: Time spent: Greater than 30 minutes Specific discharge activities: Medication reconciliation, patient education Exam Narrative: Exam Narrative: GEN: Alert and oriented, nontoxic, sitting comfortably in bedside chair HEENT: EOMIs bilaterally, no scleral icterus CV: RRR, No concerning murmurs R: LCTA bilaterally Ab: Soft and nontender Ext: wwp, no concerning edema Skin: No concerning skin lesions or rashes on exposed skin Neuro: Nonfocal Psych: Appropriate Const: Vital Signs, click to edit/add: Vital Signs - 24 hr 03/25/24 11:44 03/25/24 14:10 03/25/24 14:13 Temperature 97.1 F L 98.1 F Pulse Rate Pulse Rate [Pulse Oximeter] 101 H Pulse Rate [Right Radial] 106 H Respiratory Rate 16 16 16 Blood Pressure [Le ft Arm] Blood Pressure [Ri ght Arm] 176/116 H Blood Pressure [Ri ght Upper Arm] 130/90 H Pulse Oximetry 96 97 [facility] Room Air 03/25/24 15:00 03/25/24 15:00 03/25/24 16:00 Temperature 97.8 F 97.8 F Pulse Rate 85 Pulse Rate [Pulse Oximeter] Pulse Rate [Right Radial] 84 87 Respiratory Rate 16 16 Blood Pressure [Le ft Arm] Blood Pressure [Ri ght Arm] 169/106 H 138/91 H Blood Pressure [Ri ght Upper Arm] Pulse Oximetry 97 97 Oxygen Delivery [facility] Room Air Room Air 03/25/24 18:00 03/25/24 19:00 03/25/24 20:00 Temperature 97.8 F 97.9 F Pulse Rate Pulse Rate [Pulse Oximeter] Pulse Rate [Right Radial] 86 86 85 Respiratory Rate 16 16 16 Blood Pressure [Le ft Arm] Blood Pressure [Ri ght Arm] 137/84 146/97 H Blood Pressure [Ri ght Upper Arm] Pulse Oximetry 98 97 Oxygen Delivery [facility] Room Air Room Air 03/25/24 23:00 03/25/24 23:04 03/25/24 23:04 Temperature 97.8 F Pulse Rate 94 Pulse Rate [Pulse Oximeter] Pulse Rate [Right Radial] 86 87 Respiratory Rate 16 16 Blood Pressure [Le ft Arm] Blood Pressure [Ri ght Arm] 147/94 H Blood Pressure [Ri ght Upper Arm] Pulse Oximetry 95 Oxygen Delivery Me thod Room Air 03/26/24 03:18 03/26/24 03:18 03/26/24 08:19 Temperature 97.6 F 97.5 F L Pulse Rate Pulse Rate [Pulse Oximeter] 76 76 85 Pulse Rate [Right Radial] Respiratory Rate 18 18 18 Blood Pressure [Le ft Arm] 141/96 H Blood Pressure [Ri ght Arm] 148/100 H Blood Pressure [Ri ght Upper Arm] Pulse Oximetry 96 97 Oxygen Delivery Me thod Room Air Room Air DS: Data Data Completed and Pending Labs on day of discharge: Labs from last 24 hours 03/26/24 03/25/24 03/25/24 06:35 19:03 15:30 WBC 9.51 RBC 5.31 Hgb 16.3 Hct 47.5 MCV 90 MCH 31 MCHC 34 RDW Coeff of Rogelio 12.3 Plt Count 200 Neut % (Auto) 63.9 Lymph % (Auto) 24.8 [place] % (Auto) 7.8 Eos % (Auto) 2.8 Baso % (Auto) 0.2 Neut # (Auto) 6.07 Lymph # (Auto) 2.36 [place] # (Auto) 0.70 Eos # (Auto) 0.27 Baso # (Auto) 0.02 Abs Immat Gran (auto) 0.05 Imm/Tot Granulo (auto) 0.5 VBG pH VBG pCO2 VBG pO2 VBG HCO3 Sodium 133 L 134 L 134 L Potassium 3.2 L 3.3 L 3.5 L Chloride 100 97 98 Carbon Dioxide 28 30 28 Anion Gap 5 L 7 8 BUN 28 H 38 H 42 H Creatinine 0.7 0.9 1.0 Estimated Creat Clear 131.81 102.52 92.26 Estimated GFR 113 105 92 Glucose 185 H 244 H 319 H Lactate Calcium 8.4 8.8 9.5 Magnesium Total Bilirubin Direct Bilirubin AST ALT Alkaline Phosphatase Total Protein Albumin Urine Color Urine Appearance Urine pH Ur Specific [place] Urine Protein Urine Glucose (UA) Urine Ketones Urine Blood Urine Nitrite Urine Bilirubin Urine Urobilinogen Ur Leukocyte Esterase Urine RBC Urine WBC Ur Squamous Epith Cells Urine Bacteria SARS-CoV-2 (PCR) Influenza Type A (PCR) Influenza Type B (PCR) POC Glucose POC Troponin I 03/25/24 03/25/24 03/25/24 15:28 12:16 12:08 WBC 11.88 H RBC 6.00 H Hgb 18.4 H Hct 52.4 MCV 87 MCH 31 MCHC 35 RDW Coeff of [place]el[place] 12.1 Plt Count 246 Neut % (Auto) 81.2 H Lymph % (Auto) 11.3 L [place] % (Auto) 6.8 Eos % (Auto) 0.3 Baso % (Auto) 0.1 Neut # (Auto) 9.60 H Lymph # (Auto) 1.30 [place] # (Auto) 0.80 Eos # (Auto) 0.00 Baso # (Auto) 0.00 Abs Immat Gran (auto) 0.00 Imm/Tot Granulo (auto) 0.3 VBG pH 7.432 H VBG pCO2 41 VBG pO2 49.4 H VBG HCO3 27 Sodium 126 L Potassium 4.8 Chloride 87 L Carbon Dioxide 23 Anion Gap 16 H BUN 49 H Creatinine 1.1 Estimated Creat Clear 83.88 Estimated GFR 82 Glucose 859 H* Lactate 3.1 H 3.7 H Calcium 10.3 Magnesium 2.1 Total Bilirubin 1.4 Direct Bilirubin 0.4 AST 20 ALT 24 Alkaline Phosphatase 201 H Total Protein 7.3 Albumin 4.7 Urine Color Urine Appearance Urine pH Ur Specific [place] Urine Protein Urine Glucose (UA) Urine Ketones Urine Blood Urine Nitrite Urine Bilirubin Urine Urobilinogen Ur Leukocyte Esterase Urine RBC Urine WBC Ur Squamous Epith Cells Urine Bacteria SARS-CoV-2 (PCR) Negative SARS-CoV-2 Influenza Type A (PCR) Negative PCR FLU A Influenza Type B (PCR) Negative PCR FLU B POC Glucose POC Troponin I 03/25/24 03/25/24 12:00 11:56 WBC RBC Hgb Hct MCV MCH MCHC RDW Coeff of Rogelio Plt Count Neut % (Auto) Lymph % (Auto) [place] % (Auto) Eos % (Auto) Baso % (Auto) Neut # (Auto) Lymph # (Auto) [place] # (Auto) Eos # (Auto) Baso # (Auto) Abs Immat Gran (auto) Imm/Tot Granulo (auto) VBG pH VBG pCO2 VBG pO2 VBG HCO3 Sodium Potassium Chloride Carbon Dioxide Anion Gap BUN Creatinine Estimated Creat Clear Estimated GFR Glucose Lactate Calcium Magnesium Total Bilirubin Direct Bilirubin AST ALT Alkaline Phosphatase Total Protein Albumin Urine Color Yellow Urine Appearance Clear Urine pH 5.5 Ur Specific [place] <= 1.005 Urine Protein Negative Urine Glucose (UA) 3+ A Urine Ketones Trace A Urine Blood Negative Urine Nitrite Negative Urine Bilirubin Negative Urine Urobilinogen 0.2 Ur Leukocyte Esterase Negative Urine RBC 0-2 Urine WBC 0-2 Ur Squamous Epith Cells Few Urine Bacteria None SARS-CoV-2 (PCR) Influenza Type A (PCR) Influenza Type B (PCR) POC Glucose > 600 H* POC Troponin I 0.00 L Discharge Plan Discharge Disposition: Home, Self-Care Date of Admission: 03/25/24 15:18 Attending Provider on Discharge: Dolores Kaufman Primary Care Provider: Kade Evans Condition: Stable Anticipated Discharge Date/Time: 03/26/24 13:00 Discharge Medications: New metformin 500 mg tablet extended release 24 hr 500 mg PO BID Qty: 60 2RF Rx Instructions: please note dose increase insulin glargine [Lantus U-100 Insulin] 100 unit/mL solution 20 unit subcut BID Qty: 10 2RF Continued lisinopril 20 mg tablet 20 mg PO DAILY Qty: 14 0RF hydrochlorothiazide 12.5 mg tablet 12.5 mg PO DAILY Discontinued prednisone 10 mg tablets,dose pack See Rx Instructions .ROUTE .COMPLEX Qty: 64 0RF Rx Instructions: 80mg PO daily for 4 days, then 60mg PO daily for 2 days, then 40mg PO daily for 2 days, then 30 mg PO daily for 2 days, then 20mg PO daily for 2 days, then 10mg PO daily for 2 days, then stop. metformin 500 mg tablet extended release 24hr 500 mg PO DAILY Qty: 14 0RF Discharge Orders: Discharge Order (Routine); Ordered 03/26/24 Ordered By: Dolores Kaufman Patient Education: Metformin (By mouth), Insulin Detemir (By injection), How to Give an Insulin Injection (DC), Diabetes and Nutrition (DC) Additional Instructions: Increase your Metformin to 500mg twice/day (take with food to prevent stomach upset). New Insulin prescription sent to [facility] (take this morning and night). Make sure you cook pickled meat your Glucometer and BG log book at [facility] as well Check your blood sugar: - first thing in the morning before eating - 2 hours after your biggest meal (can do this after 2 meals if you want more data) - before bed - with any symptoms of dizziness, lightheadedness Bring your blood sugar log to appt with Gillian and she can help you with further management. Activity Level: Activity as Tolerated Discharge Diet: Diabetic Follow Up Appointments: Kade Evans MD [Primary Care Provider] - Gillian Goins PA-C [Referring] - 03/31/24 11:35 am ([facility] follow-up. Primary unavailable) Forms: Open CS Info Instructions
--- NOTE | 2024-03-26 14:52 | PC.NURSE ---
Discharge Note: The patient discharged home with his father. The patient ambulated off the unit with no issues. An extensive amount of information regarding his new diagnosis of Type 2 DM was given. The patient was shown for to complete an insulin injection. The patient then completed a teach back for lunch administration. I also educated him to keep something with sugar on him if his blood sugar drops. Educated him on the fact that the glucometer he gets and insulin form may be different depending on what is in stock. All the patients questions were answered and follow up appointments are scheduled. Marlena FLETCHER BSN
== END 2024-03-26 12:00 | disposition home or self-care (01) | DRG 420 ==
LOC: ED 13:24 → MEDSURG 13:52
PROVIDERS: Admitting Provider Family Medicine; Emergency Provider Family Medicine; PCP Family Medicine; Visit Provider Family Medicine
DX: E11.00 Type 2 diabetes mellitus with hyperosmolarity without nonketotic hyperglycemic-hyperosmolar coma (NKHHC) (principal); I10 Essential (primary) hypertension
CPT/HCPCS: 36415; 80048; 80076; 81001; 82803; 82947; 82962; 83605; 83735; 84484; 85025; 87631; 93005; 94761; 99284; 99285; A9270; J3590; J7030; S5010

== ENCOUNTER 2025-09-03 20:10 | Outpatient (CLI) | payer OTHER, BC, SELFPAY | END 2025-09-03 20:11 | disposition home or self-care (01) | LOC: AMB 09-12 02:26 | PROVIDERS: PCP Family Medicine; Visit Provider Family Medicine | DX: S29.9XXA Unspecified injury of thorax, initial encounter (principal); V48.0XXA Car driver injured in noncollision transport accident in nontraffic accident, initial encounter; Y92.410 Unspecified street and highway as the place of occurrence of the external cause | CPT/HCPCS: A0998 ==